=== PATIENT | female | born 1995 | race African-American/Black ===

== ENCOUNTER 2017-09-10 13:00 | Emergency (ER) | payer SELFPAY ==
[2017-09-10 14:31] LABS: NEGATIVE OBC STREP NEG; POSITIVE OBC STREP POS
== END 2017-09-10 14:51 | disposition home or self-care (01) ==
LOC: ER 13:00
DX: J02.9 Acute pharyngitis, unspecified (principal); J45.909 Unspecified asthma, uncomplicated
CPT/HCPCS: 87070; 87880; 99283

== ENCOUNTER 2018-07-31 08:51 | Emergency (ER) | payer SELFPAY ==
[~2018-07-31] VITALS: Ht 170.2 cm; Wt 79.4 kg
[~2018-07-31 08:51] MED LIST: METH4TAB2 PO
[2018-07-31 08:56] VITALS: BP 129/67
[2018-07-31 10:03] LABS: INFLUENZA A PATIENT NEGATIVE (NEGATIVE); INFLUENZA B PATIENT NEGATIVE (NEGATIVE)
--- NOTE | 2018-07-31 10:12 | PHYS DOC ---
Past Medical History Past Medical History: Asthma Past Surgical History: No Surgical History Alcohol Use: None Drug Use: None Adult General Chief Complaint Chief Complaint: SORE THROAT HPI HPI Patient is a 23 year old AA female who presents to the ER accompanied by her mother, with complaints of a sore throat, body aches, fatigue, nasal congestion , and dry cough for the last 3 days. She denies any nausea, vomiting, diarrhea, abdominal pain, ear pain, or shortness of breath. Pt states she has not measured her temperature but has felt hot. She has not received an annual flu shot this year. Review of Systems Review of Systems Constitutional: See HPI Eyes: Denies change in visual acuity, redness, or eye pain [] HENT: See HPI Respiratory: Denies wheezing or shortness of breath; see HPI Cardiovascular: No additional information not addressed in HPI [] GI: Denies abdominal pain, nausea, vomiting, or diarrhea [] Musculoskeletal: reports generalized body aches Integument: Denies rash or skin lesions [] Neurologic: Denies headache, focal weakness or sensory changes [] All other systems were reviewed and found to be within normal limits, except as documented in this note. Current Medications Current Medications Current Medications Medications (Trade) Dose Ordered Sig/Marino Start Time Stop Time Status Last Admin Dose Admin Dexamethasone Sodium Phosphate (Decadron) 10 mg 1X ONCE 07/31/18 10:15 07/31/18 10:16 DC 07/31/18 10:22 10 MG Allergies Allergies Allergies Coded Allergies Type Severity Reaction Last Updated Verified No Known Drug Allergies 04/08/14 No Physical Exam Physical Exam Constitutional: Well developed, well nourished, no acute distress, non-toxic appearance. [] HENT: Normocephalic, atraumatic, bilateral external ears normal, bilateral TMs normal, no erythema of posterior pharynx, 2+ tonsils bilat, oropharynx moist, no oral exudates, nose normal. [] Eyes: conjunctiva normal, no discharge. [] Neck: Normal range of motion, no tenderness, supple, no stridor. [] Cardiovascular:Heart rate regular rhythm, no murmur [] Lungs & Thorax: Bilateral breath sounds clear to auscultation [] Skin: Warm, dry, no erythema, no rash. [] Extremities: No cyanosis, ROM intact, no edema. [] Neurologic: Alert and oriented X 3, normal motor function, normal sensory function, no focal deficits noted. [] Psychologic: Affect normal, judgement normal, mood normal. [] Current Patient Data Vital Signs Vital Signs Date Time Temp Pulse Resp B/P (MAP) Pulse Ox O2 Delivery O2 Flow Rate FiO2 07/31/18 08:56 99.0 94 20 129/67 (87) 99 Room Air 99.0 Lab Values Laboratory Tests Test 07/31/18 09:02 07/31/18 09:05 Influenza Type A Antigen Negative (NEGATIVE) Influenza Type B Antigen Negative (NEGATIVE) Group A Streptococcus Rapid Negative (NEGATIVE) EKG EKG [] Radiology/Procedures Radiology/Procedures rapid strep and influenza testing negative. [] Course & Med Decision Making Course & Med Decision Making Pertinent Labs and Imaging studies reviewed. (See chart for details) [] Dragon Disclaimer Dragon Disclaimer This electronic medical record was generated, in whole or in part, using a voice recognition dictation system. Departure Departure Impression: Primary Impression: URI (upper respiratory infection) Additional Impression: Pharyngitis Disposition: HOME, SELF-CARE Condition: STABLE Referrals: YOLA DAMON (PCP) Patient Instructions: Upper Respiratory Infection, Adult, [id number], Viral and Bacterial Pharyngitis, [id number] Additional Instructions: Recommend warm salt water gargles as needed for relief of discomfort. Alternate Tylenol and ibuprofen as needed for fever/pain. Follow-up with primary care doctor if symptoms persist. Return to the ER if symptoms worsen. Problem Qualifiers Primary Impression: URI (upper respiratory infection) URI type: unspecified URI Qualified Codes: J06.9 - Acute upper respiratory infection, unspecified Additional Impression: Pharyngitis Pharyngitis/tonsillitis etiology: unspecified etiology Qualified Codes: J02.9 - Acute pharyngitis, unspecified JESUS BALBUENA [employer]ER Jul 31, 2018 10:12
[2018-07-31] MEDS ORDERED: DEXAMETHASONE SOD PHOS 20 MG/5 ML VIAL. PO ONE (10:15)
== END 2018-07-31 10:25 | disposition home or self-care (01) ==
LOC: ER 08:51
DX: J02.9 Acute pharyngitis, unspecified (principal); J45.909 Unspecified asthma, uncomplicated
CPT/HCPCS: 87070; 87804; 87880; 99283; J1100